=== PATIENT | female | born 1995 | race African-American/Black ===

== ENCOUNTER 2018-05-07 16:43 | Emergency (ER) | payer SELFPAY ==
--- NOTE | 2018-05-07 17:21 | ER Document Report ---
ED GI/ - General Chief Complaint: Back Pain Stated Complaint: BACK PAIN/HEADACHE Time Seen by Provider: 05/07/18 17:18 Mode of Arrival: Ambulatory Information source: Patient Notes: Patient is an otherwise healthy 23-year-old female who presents with chief complaint of left-sided back pain as well as left lower quadrant abdominal cramping. Patient reports his symptoms have been going on for approximately 2 weeks. Patient reports her last menstrual period was on 04/10/18. Patient denies any fever, nausea or vomiting. Patient reports diarrhea 1 today. Patient denies any dysuria or vaginal discharge. TRAVEL OUTSIDE OF THE [place] IN LAST 30 DAYS: No - Related Data Allergies/Adverse Reactions: No Known Allergies Allergy (Verified 05/07/18 16:47) Past Medical History - General Information source: Patient - Social History Smoking Status: Current Every Day Smoker Frequency of alcohol use: Occasional Drug Abuse: None Lives with: Family Family History: Reviewed & Not Pertinent - Medical History Medical History: Negative Surgical Hx: Negative - Immunizations Immunizations up to date: Yes Hx Diphtheria, Pertussis, Tetanus Vaccination: Yes Physical Exam - Vital signs Vitals: Temp Pulse Resp BP Pulse Ox 98.7 F 71 16 135/68 H 100 05/07/18 16:49 05/07/18 16:49 05/07/18 16:49 05/07/18 16:49 05/07/18 16:49 - Notes Notes: PHYSICAL EXAMINATION: GENERAL: Well-appearing, well-nourished and in no acute distress. HEAD: Atraumatic, normocephalic. EYES: Pupils equal round and reactive to light, extraocular movements intact, conjunctiva are normal. ENT: Nares patent, oropharynx clear without exudates. Moist mucous membranes. NECK: Normal range of motion, supple without lymphadenopathy LUNGS: Breath sounds clear to auscultation bilaterally and equal. No wheezes rales or rhonchi. HEART: Regular rate and rhythm without murmurs ABDOMEN: Soft, nontender, nondistended abdomen. No guarding, no rebound. No masses appreciated. Female : deferred Musculoskeletal: Normal range of motion, no pitting or edema. No cyanosis. NEUROLOGICAL: Cranial nerves grossly intact. Normal speech, normal gait. Normal sensory, motor exams PSYCH: Normal mood, normal affect. SKIN: Warm, Dry, normal turgor, no rashes or lesions noted. Course - Re-evaluation Re-evalutation: Patient was initially seen by provider in triage who initiated her workup. Patient is well appearing, nontoxic and currently denies any abdominal or back pain. Patient had labs drawn, CBC and comprehensive metabolic panel are both within normal limits. Urinalysis reveals large leukocyte esterase however patient adamantly denies any urinary symptoms. Given that patient's physical exam is benign and patient's workup is otherwise unremarkable, patient will be discharged home at this time. Patient will be given ED return precautions for abdominal pain. Unlikely that there is any acute etiology due to patient's reported location of pain being in the left lower quadrant with an otherwise normal workup. Will send urine for culture and will call patient if there is any abnormality. - Vital Signs Vital signs: Temp Pulse Resp BP Pulse Ox 98.7 F 63 16 114/53 L 97 05/07/18 18:58 05/07/18 18:58 05/07/18 16:51 05/07/18 18:58 05/07/18 18:58 - Laboratory Result Diagrams: 05/07/18 17:35 05/07/18 17:35 Laboratory results interpreted by me: 05/07/18 05/07/18 05/07/18 17:35 17:35 17:35 RDW 14.2 H Seg Neutrophils % 36.2 L Lymphocytes % 47.2 H Monocytes % 14.0 H Glucose 67 L Ur Leukocyte Esterase LARGE H Discharge - Discharge Clinical Impression: Abdominal pain Qualifiers: Abdominal location: left lower quadrant Qualified Code(s): R10.32 - Left lower quadrant pain Condition: Stable Disposition: HOME, SELF-CARE Additional Instructions: ABDOMINAL PAIN: There are many causes of abdominal pain. Pain can mean a serious problem requiring surgery (such as appendicitis). It can also be an innocent problem that goes away on its own (such as a viral infection). Often, time must pass to determine the cause of pain. The physician does not feel that hospitalization is necessary, at present. Things may change within the next 24 hours. Call the doctor or come back for re- examination if any problems occur, such as: (1) Pain that becomes more severe, steady, or becomes concentrated in one specific area. Also, pain that is more severe with movement or coughing. (2) Vomiting that persists or becomes more frequent. (3) Blood in the vomitus, urine, or bowel movements. Blood in the stool may have a tarry or black appearance. (4) Shaking chills or fever greater than 100 degrees F. (5) The abdomen becomes more distended or swollen. (6) Bowel movements cease. (7) Failure to improve as expected. NORMAL EXAM AND WORKUP: At this time, your examination and workup show no significant abnormality. No significant abnormal physical findings are noted. All laboratory, EKG, and imaging (x-ray, CT scans, ultrasound) studies that were ordered show no significant abnormality. Although your examination and all studies that were ordered showed no significant abnormal finding, there are no examinations and no studies that are 100% accurate. There is always the possibility that some abnormality could exist and not be detected with physical examination or within the limits and capabilities of laboratory and other studies. You should return or follow up as you were instructed on your visit today for further evaluation if your symptoms do not resolve. FOLLOW-UP CARE: If you have been referred to a physician for follow-up care, call the physician s office for an appointment as you were instructed or within the next two days. If you experience worsening or a significant change in your symptoms, notify the physician immediately or return to the Emergency Department at any time for re-evaluation. FOLLOW-UP CARE: You should return for re-evaluation in 12 hours. This follow-up visit is important. If you are unable to return, or feel that the return visit is unnecessary, please call us. Please take ibuprofen 600 mg as needed every 6 hours for your headache. He may also try taking Benadryl 25-50 mg with the ibuprofen as this may also help. Please return to the emergency department for any of the above symptoms. Your urine sample has been sent for culture, if there is any abnormality we will call you.
[2018-05-07 18:18] LABS: ABSOLUTE BASOPHILS # (AUTO) 0.1 10^3/uL (0.0-0.2); ABSOLUTE EOSINOPHILS # (AUTO) 0.1 10^3/uL (0.0-0.6); ABSOLUTE LYMPHOCYTES (AUTO) 2.7 10^3/uL (0.5-4.7); ABSOLUTE MONOCYTES (AUTO) 0.8 10^3/uL (0.1-1.4); ABSOLUTE NEUT (AUTO) 2.1 10^3/uL (1.7-8.2); EOSINOPHILS % (AUTO) 1.6 % (0-6); HEMATOCRIT 39.9 % (36.0-47.0); LYMPHOCYTES % (AUTO) 47.2 % (13-45); MEAN CORPUSCULAR HEMOGLOBIN 28.5 pg (27.0-33.4); MEAN CORPUSCULAR HGB CONC 32.5 g/dL (32.0-36.0); MEAN CORPUSCULAR VOLUME 88 fl (80-97); PLATELET COUNT 178 10^3/uL (150-450); RED BLOOD COUNT 4.55 10^6/uL (3.72-5.28); RED CELL DISTRIBUTION WIDTH 14.2 % (11.5-14.0); SEGMENTED NEUTROPHILS % (AUTO) 36.2 % (42-78); TOTAL CELLS COUNTED % (AUTO) 100 %; WHITE BLOOD COUNT 5.7 10^3/uL (4.0-10.5)
[2018-05-07 18:27] LABS: ALANINE AMINOTRANSFERASE 19 U/L (9-52); ALKALINE PHOSPHATASE 43 U/L (38-126); ANION GAP 11 (5-19); ASPARTATE AMINO TRANSFERASE 25 U/L (14-36); BILIRUBIN,DIRECT 0.2 mg/dL (0.0-0.4); BILIRUBIN,TOTAL 0.3 mg/dL (0.2-1.3); BLOOD UREA NITROGEN 7 mg/dL (7-20); CALCIUM 9.5 mg/dL (8.4-10.2); CARBON DIOXIDE 28 mmol/L (22-30); CHLORIDE 103 mmol/L (98-107); GLUCOSE 67 mg/dL (75-110); POTASSIUM 4.2 mmol/L (3.6-5.0); TOTAL PROTEIN 7.5 g/dL (6.3-8.2)
[2018-05-07 18:38] LABS: APPEARANCE,URINE SLIGHTLY-CLOUDY; BILIRUBIN,URINE NEGATIVE (NEGATIVE); COLOR,URINE YELLOW; GLUCOSE, URINE NEGATIVE (NEGATIVE); KETONES,URINE NEGATIVE (NEGATIVE); LEUKOCYTE ESTERASE,URINE LARGE (NEGATIVE); NITRITE,URINE NEGATIVE (NEGATIVE); PROTEIN,URINE NEGATIVE (NEGATIVE); UROBILINOGEN,URINE NEGATIVE mg/dL (<2.0)
[2018-05-07 19:04] VITALS: BP 114/53
== END 2018-05-07 19:05 | disposition home or self-care (01) ==
LOC: ER 16:43
DX: R10.32 Left lower quadrant pain (principal); M54.9 Dorsalgia, unspecified; R51 Headache; F17.200 Nicotine dependence, unspecified, uncomplicated
CPT/HCPCS: 36415; 80053; 81001; 81025; 83690; 85025; 87086; 99283

== ENCOUNTER 2018-06-29 14:03 | Emergency (ER) | payer SELFPAY ==
[2018-06-29 14:13] VITALS: BP 131/73
== END 2018-06-29 15:25 | disposition left against medical advice (07) ==
LOC: ER 14:03
DX: Z53.21 Procedure and treatment not carried out due to patient leaving prior to being seen by health care provider (principal)

== ENCOUNTER 2018-06-29 19:15 | Emergency (ER) | payer SELFPAY ==
--- NOTE | 2018-06-29 20:02 | ER Document Report ---
ED General - General Chief Complaint: Abdominal Pain Stated Complaint: HAND INJURY Time Seen by Provider: 06/29/18 19:42 Notes: Patient is a 23-year-old female presenting to the emergency room complaining of a vaginal foreign body. Patient states 1 week ago she was having sexual intercourse when she thinks the condom got stuck in her vaginal canal. Patient states over the week she has been able to feel something in her vaginal canal but has been unable to extract it. Patient now complains of white vaginal discharge, denies itch, denies malodor. Patient denies fever, nausea, vomiting, diarrhea, chest pain, shortness of breath. States this morning she had intermittent right pelvic pain which is why she decided to come to the emergency room. Patient also states 3 days ago she punched a wall with her left hand. Has noted increased swelling and pain since then. Has not seen a provider since. Past medical history: Asthma Meds: None Allergies: None Surgical history: None Patient states she is an everyday smoker, occasional EtOH use, denies illicit drug use. TRAVEL OUTSIDE OF THE [place] IN LAST 30 DAYS: No - Related Data Allergies/Adverse Reactions: No Known Allergies Allergy (Verified 06/29/18 14:09) Past Medical History - General Information source: Patient - Social History Smoking Status: Current Every Day Smoker Chew tobacco use (# tins/day): No Frequency of alcohol use: None Drug Abuse: None Lives with: Family Family History: Reviewed & Not Pertinent Patient has suicidal ideation: No Patient has homicidal ideation: No Renal/ Medical History: Denies: Hx Peritoneal Dialysis - Immunizations Immunizations up to date: Yes Hx Diphtheria, Pertussis, Tetanus Vaccination: Yes Review of Systems - Review of Systems Constitutional: See HPI EENT: No symptoms reported Cardiovascular: See HPI Respiratory: No symptoms reported Gastrointestinal: See HPI Genitourinary: See HPI Female Genitourinary: See HPI Musculoskeletal: No symptoms reported Skin: No symptoms reported Hematologic/Lymphatic: No symptoms reported Neurological/Psychological: No symptoms reported Physical Exam - Vital signs Vitals: Temp Pulse Resp BP Pulse Ox 98.5 F 104 H 16 129/75 H 100 06/29/18 19:27 06/29/18 19:27 06/29/18 19:27 06/29/18 19:27 06/29/18 19:27 - Notes Notes: GENERAL: Alert, interacts well. No acute distress. HEAD: Normocephalic, atraumatic. EYES: Pupils equal, round, and reactive to light. Extraocular movements intact. ENT: Oral mucosa moist, tongue midline. NECK: Full range of motion. Supple. Trachea midline. LUNGS: Clear to auscultation bilaterally, no wheezes, rales, or rhonchi. No respiratory distress. HEART: Regular rate and rhythm. No murmur ABDOMEN: Soft, non-tender. Non-distended. Bowel sounds present in all 4 quadrants. EXTREMITIES: Moves all 4 extremities spontaneously. normal radial and dorsalis pedis pulses bilaterally. No cyanosis. Minor swelling noted dorsal aspect of left hand near MCP joints. Full range of motion of MCP joint, patient able to make a fist and fully extend hand states it just hurts. Distal circulation all fingers intact. No numbness or tingling. No snuffbox tenderness. BACK: no cervical, thoracic, lumbar midline tenderness. No saddle anesthesia, normal distal neurovascular exam. NEUROLOGICAL: Alert and oriented x3. Normal speech. PSYCH: Normal affect, normal mood. SKIN: Warm, dry, normal turgor. No rashes or lesions noted. PELVIC: Copious amounts of yellow tinged discharge noted in vaginal canal. No cervical motion tenderness, no adnexal tenderness BL. Course - Re-evaluation Re-evalutation: During pelvic exam no foreign body seen. Ultrasound will be ordered. Discussed wet mount results with Pt and prophylactic gonorrhea and Chlamydia treatments. No bony abnormality seen in hand x-ray, continues to deny snuffbox tenderness. No foreign body seen on ultrasound or during vaginal exam, discussed US findings with patient. - Vital Signs Vital signs: Temp Pulse Resp BP Pulse Ox 98.5 F 72 20 130/60 H 97 06/29/18 19:27 06/29/18 23:35 06/29/18 23:35 06/29/18 23:35 06/29/18 23:35 - Laboratory Laboratory results interpreted by al: 06/29/18 06/29/18 20:20 20:20 Ur Leukocyte Esterase LARGE H N.gonorrhoeae DNA (PCR) DETECTED H Discharge - Discharge Clinical Impression: Trichimoniasis, Feared condition not demonstrated Hand injury Qualifiers: Encounter type: initial encounter Laterality: left Qualified Code(s): S69.92XA - Unspecified injury of left wrist, hand and finger(s), initial encounter Condition: Stable Disposition: HOME, SELF-CARE Additional Instructions: As we discussed you have been seen and treated in the emergency room for a sexually transmitted disease. Your gonorrhea and Chlamydia tests have not resulted but you have been prophylactically treated in the emergency room. You will be prescribed antibiotics that you must take as prescribed. Please refrain from sexual activity or alcohol use for the next 7 days. Your hand x-ray showed there is nothing broken. Follow-up with primary care in the next 24-48 hours. Prescriptions: Metronidazole [Flagyl 500 mg Tablet] 500 mg PO BID #14 tablet
[2018-06-29 20:33] LABS: APPEARANCE,URINE HAZY; BILIRUBIN,URINE NEGATIVE (NEGATIVE); COLOR,URINE STRAW; GLUCOSE, URINE NEGATIVE (NEGATIVE); KETONES,URINE NEGATIVE (NEGATIVE); LEUKOCYTE ESTERASE,URINE LARGE (NEGATIVE); NITRITE,URINE NEGATIVE (NEGATIVE); PROTEIN,URINE NEGATIVE (NEGATIVE); UROBILINOGEN,URINE NEGATIVE mg/dL (<2.0)
[2018-06-29 20:36] LABS: URINE SPECIFIC GRAVITY 1.008
[2018-06-29 20:42] LABS: RBCS (WET MOUNT) RARE RBCS SEEN; T.VAGINALIS (WET MOUNT) TRICHOMONAS SEEN; WBCS (WET MOUNT) 1+ WBCS SEEN; YEAST (WET MOUNT) NO YEAST SEEN
[2018-06-29] MEDS ORDERED: AZITHROMYCIN 1 GM SUSP PACKET PO ONE (22:02)
[2018-06-29] MEDS ORDERED: CEFTRIAXONE INJ 250 MG VIAL IM ONE (22:02)
[2018-06-29] MEDS ORDERED: LIDOCAINE 1% INJ-PF (10 MG/ML) 30 ML SDV INJ ONE (22:02)
[2018-06-29] MEDS ORDERED: METRONIDAZOLE 500 MG TABLET PO ONE (22:03)
[2018-06-29 22:04] LABS: CHLAM PCR NOT DETECTED (NOT DETECT); GON PCR DETECTED (NOT DETECT)
--- NOTE | 2018-06-29 22:10 | RADIOLOGY REPORT (SQ) ---
3 VIEWS OF THE LEFT HAND HISTORY: Punched a wall. COMPARISON: None. FINDINGS/IMPRESSION: Normal bone mineralization. No acute fracture or malalignment. Lunotriquetral coalition is present. No radiopaque foreign body is identified.
--- NOTE | 2018-06-29 22:53 | RADIOLOGY REPORT (SQ) ---
EXAM DESCRIPTION: US TRANSVAGINAL COMPLETED DATE/TME: 06/29/2018 20:21 CLINICAL HISTORY: 23 years, Female, possible FB COMPARISON: None. TECHNIQUE: Transvaginal pelvic ultrasound was done along with Doppler evaluation of the ovaries LIMITATIONS: None. FINDINGS: The uterus measures 8.3 x 4.4 x 4.2 cm with the endometrial thickness of 5.0 mm. The cervix measures 2.6 cm. There is presence of a 5.0 x 4.5 x 3.8 cm intramural uterine fibroid in the lower uterine segment. The right ovary measures 4.1 x 3.1 x 2.4 cm and the left ovary measures 3.7 x 2.1 x 1.5 cm. Normal color Doppler signal is seen in the bilateral ovaries. There are no ovarian lesions or adnexal masses. There is no free fluid in the pelvis IMPRESSION: There is presence of a 5.0 x 4.5 x 3.8 cm intramural uterine fibroid in the lower uterine segment. 2011 [employer]- All Rights Reserved
[2018-06-29 23:36] VITALS: BP 130/60
== END 2018-06-29 23:35 | disposition home or self-care (01) ==
LOC: ER 19:15
DX: A59.00 Urogenital trichomoniasis, unspecified (principal); S69.92XA Unspecified injury of left wrist, hand and finger(s), initial encounter; W22.01XA Walked into wall, initial encounter; Y92.009 Unspecified place in unspecified non-institutional (private) residence as the place of occurrence of the external cause; R10.2 Pelvic and perineal pain; J45.909 Unspecified asthma, uncomplicated; F17.200 Nicotine dependence, unspecified, uncomplicated
CPT/HCPCS: 99284; 96372; 87210; 81025; 81001; 87491; 87591; 73130; 76830; 93976; J3490; Q0144; J0696

== ENCOUNTER 2018-10-30 23:29 | Emergency (ER) | payer SELFPAY ==
--- NOTE | 2018-10-31 03:57 | ER Document Report ---
ED General - General Chief Complaint: Foreign Body in Vagina Stated Complaint: POSSIBLE FOREIGN OBJECT IN VAGINA Time Seen by Provider: 10/31/18 03:29 Primary Care Provider: KARLY AMEZCUA DO [ACTIVE STAFF] - 11/02/18 Notes: Patient is a 23-year-old female who presents with complaint of possible vaginal foreign body. She says that she feels like her bad vagina has been swollen now for several months. She says that she is unsure if she could have a condom that is still in her vaginal vault that she thinks has been there since August. She is not really sure if it has been or not. Is currently in intermediate. She is been in intermediate for 2 months. She says she is been treated with antibiotics but she still has vaginal swelling and discharge. She has not yet seen a dipper fish. She said there is no chance she could be . TRAVEL OUTSIDE OF THE [place] IN LAST 30 DAYS: No - Related Data Allergies/Adverse Reactions: No Known Allergies Allergy (Verified 06/29/18 14:09) Past Medical History - Social History Smoking Status: Current Every Day Smoker Frequency of alcohol use: Occasional Drug Abuse: None Family History: Reviewed & Not Pertinent Patient has suicidal ideation: No Patient has homicidal ideation: No Renal/ Medical History: Denies: Hx Peritoneal Dialysis - Immunizations Immunizations up to date: Yes Hx Diphtheria, Pertussis, Tetanus Vaccination: Yes Review of Systems - Review of Systems Notes: My Normal Review Basic REVIEW OF SYSTEMS: CONSTITUTIONAL : Denies fever GASTROINTESTINAL: Denies abdominal pain. Denies nausea, vomiting, or diarrhea. GENITOURINARY: Denies difficulty urinating, painful urination, burning, frequency, or blood in urine. FEMALE GENITOURINARY: Abnormal vaginal discharge. Sensation of vaginal foreign body. MUSCULOSKELETAL: Denies neck or back pain or joint pain or swelling. SKIN: Denies rash or skin lesions. NEUROLOGICAL: Denies altered mental status or loss of consciousness. ALL OTHER SYSTEMS REVIEWED AND NEGATIVE. Physical Exam - Notes Notes: General Appearance: Well nourished, alert, cooperative, no acute distress, no obvious discomfort. Vitals: reviewed, See vital signs table. Head: no swelling or tenderness to the head Eyes: PERRL, EOMI, Conjuctiva clear Abdomen: Normal BS, soft, No rigidity, No abdominal tenderness, No guarding, no rebound, no abdominal masses, no organomegaly Pelvic exam: Vaginal canal is obviously swollen. I looked for a while on speculum exam and could not see any evidence of foreign body. I was able to visualize the cervix. She does have abnormal drainage coming from the cervix. Pelvic exam performed with female analytics specialist Ira Fritz RN at bedside. Extremities: strength 5/5 in all extremities, good pulses in all extremities, no swelling or tenderness in the extremities, no edema. Skin: warm, dry, appropriate color, no rash Neuro: speech clear, oriented x 3, normal affect, responds appropriately to questions. Course - Re-evaluation Re-evalutation: 10/31/18 06:04 I cannot find a vaginal foreign body on speculum exam. Patient does have significant swelling in the vaginal canal. Cause is not exactly known. She does have abnormal discharge coming from cervical office. Therefore the treated with Rocephin and azithromycin. I did order an ultrasound. Did not show any concerning findings of her fibroids which I explained to the patient with these were. I will refer her to [facility] for reevaluation due to her vaginal swelling. There is no evidence of abscess. Patient is not toxic or septic appearing. She looks well. I feel she safe to be discharged. She is to return to ER if she has fevers, abdominal pain, or feels that her symptoms are worsening. Dictation of this chart was performed using voice recognition software; therefore, there may be some unintended grammatical errors. Discharge - Discharge Clinical Impression: vaginal swelling, Vaginal discharge Condition: Good Disposition: HOME, SELF-CARE Additional Instructions: You have vaginal swelling. The exact cause is not clear. I did not see evidence of a vaginal foreign body or condom on your exam. I will refer you to the [facility]. The phone number for the [facility] is under the name Dr. Karly Hensley on your discharge paper work. please call the office friday morning to make a close follow up appointment.Please return to the ER immediately if you develop fevers, vomiting, severe abdominal pain, or feel that you are worsening. Referrals: KARLY AMEZCUA DO [ACTIVE STAFF] - 11/02/18
--- NOTE | 2018-10-31 04:38 | RADIOLOGY REPORT (SQ) ---
EXAM DESCRIPTION: US PELVIS COMPLETED DATE/TME: 10/31/2018 03:40 CLINICAL HISTORY: 23 years, Female, pelvic pain, vaginal swelling COMPARISON: 06/29/2018 ultrasound TECHNIQUE: Transverse and longitudinal transvaginal sonographic images of the pelvis LIMITATIONS: None. FINDINGS: The uterus measures 8.3 x 3.8 cm. There is a 4.4 x 4.2 x 4.0 cm fibroid in the fundal region. The endometrium measures 2.3 mm. Right ovary measures 3.1 x 2.2 x 2.4 cm, the left 4.0 x 2.2 x 2.7 cm. Doppler and spectral analysis with color flow was utilized. Arterial and venous flow to both ovaries. Bilateral ovarian follicles. No solid adnexal mass. Trace of free fluid may be physiologic. IMPRESSION: Fibroid in the fundal region of the uterus. Trace of free fluid which may be physiologic. copyright 2010 [employer]- All Rights Reserved
[2018-10-31 05:03] LABS: BACTERIA (WET MOUNT) 3+ BACTERIA SEEN; EPITHELIALS (WET MOUNT) 3+ EPITHELIALS SEEN; RBCS (WET MOUNT) 1+ RBCS SEEN; T.VAGINALIS (WET MOUNT) NO TRICHOMONAS SEEN; WBCS (WET MOUNT) 2+ WBCS SEEN; YEAST (WET MOUNT) NO YEAST SEEN
[2018-10-31] MEDS ORDERED: AZITHROMYCIN 250 MG TABLET PO ONE (05:19)
[2018-10-31 05:23] LABS: CHLAM PCR NOT DETECTED (NOT DETECT); GON PCR NOT DETECTED (NOT DETECT)
[2018-10-31 05:59] VITALS: BP 118/81
== END 2018-10-31 06:00 | disposition home or self-care (01) ==
LOC: ER 23:29
DX: D25.9 Leiomyoma of uterus, unspecified (principal); N89.8 Other specified noninflammatory disorders of vagina; F17.200 Nicotine dependence, unspecified, uncomplicated
CPT/HCPCS: 76856; 87210; 87491; 87591; 93976; 99284

== ENCOUNTER 2019-03-16 18:09 | Emergency (ER) | payer OTHER ==
[2019-03-16 18:14] VITALS: BP 127/77
== END 2019-03-16 19:18 | disposition left against medical advice (07) ==
LOC: ER 18:09
DX: Z53.21 Procedure and treatment not carried out due to patient leaving prior to being seen by health care provider (principal)